=== PATIENT | female | born 1995 | race Two or more races ===

== ENCOUNTER 2018-12-16 07:46 | Inpatient (IN) | payer MEDICAID, OTHER ==
[~2018-12-16] VITALS: Ht 157.5 cm; Wt 59.0 kg
[2018-12-16] MEDS ORDERED: LACT. RINGERS/OXYTOCIN 20UNITS 1,000 ML IV SCH (08:19)
[2018-12-16] MEDS ORDERED: DERMOPLAST 60ML BOTTLE TOP PRN (08:30)
[2018-12-16] MEDS ORDERED: LIDOCAINE 2%HCL (LOCAL ANESTH.) INJ 20ML MDV ID PRN (08:30)
[2018-12-16] MEDS ORDERED: PENICILLIN G POT 5MIL/D5 50ML 50 ML IV ONE (08:30)
[2018-12-16] MEDS ORDERED: PHISODERM TOP SOLN 240ML BTL TOP PRN (08:30)
[2018-12-16] MEDS ORDERED: METHYLERGONOVINE MALEATE 0.2 MG/ML AMP IM PRN (08:30)
[2018-12-16] MEDS ORDERED: WITCH HAZEL-GLYCERIN PAD TOP PRN (08:30)
[2018-12-16] MEDS ORDERED: NALBUPHINE HCL 10 MG/1ml INJECTION IV PRN (08:30)
[2018-12-16] MEDS: LACTATED RINGER'S 1,000 ML IV SCH ×2 (08:50→09:23)
[2018-12-16 08:57] LABS: Basophils # (auto) 0 uL; Eosinophils # (auto) 0.1 uL; Hemoglobin 8.5 g/dL (12.2-16.2); Lymphocytes # (auto) 2.3 uL; Monocytes # (auto) 0.5 uL
[2018-12-16 08:59] LABS: Basophils % (auto) 0.3 % (0.0-2.0); Eosinophils % (auto) 0.9 % (0.0-7.0); Hematocrit 26.3 % (36.0-46.0); Lymphocytes % (auto) 22.1 % (10.0-50.0); Mean Corpuscular Hemoglobin 23.5 pg (28.0-32.0); Mean Corpuscular Hgb Conc. 32.4 g/dL (32.0-36.0); Mean Corpuscular Volume 72.4 fL (80.0-100.0); Monocytes % (auto) 4.7 % (0.0-12.0); Neutrophils # (auto) 7.3 uL; Platelet Count (auto) 256 10^3/uL (140-450); Red Blood Cells 3.64 10^6/uL (4.0-5.20); White Blood Cell 10.2 10^3/uL (4.4-10.8)
[2018-12-16 09:12] LABS: INR < 0.93 (0.9-1.15); Partial Thromboplastin Time 24.4 sec (23.64-32.05)
[2018-12-16 09:19] LABS: Albumin 2.3 g/dL (3.4-5.0); Calcium 8.1 mg/dL (8.5-10.1); Potassium 3.3 mmol/L (3.5-5.1); Uric Acid 4.2 mg/dL (2.6-6.0)
[2018-12-16 09:22] LABS: BUN/Creatinine Ratio 11.5; Bilirubin, Total 0.5 mg/dL (0.2-1.0); Total Protein 6.3 g/dL (6.4-8.2)
[2018-12-16] MEDS ORDERED: FERR27TA2 PO (09:25)
[2018-12-16] MEDS ORDERED: PREN-129 PO (09:25)
--- NOTE | 2018-12-16 11:29 | NUR ---
Ambulation: Patient OOB with standby assistance by RN. Patient ambulated to bathroom with steady gait. Patient able to void without difficulty. [facility] teaching provided with returned demonstration by patient. Clean gown provided and bed linen changed. Patient ambulated back to bed with steady gait and no distress noted.
[2018-12-16] MEDS: IBUPROFEN 600 MG TAB PO PRN ×2 (12:19→19:18)
[2018-12-16] MEDS ORDERED: PENICILLIN G POTASSIUM 2,500,000 UNITS in D5W 5% 50 ML IV SCH (12:30)
[2018-12-16 15:00] VITALS: BP 124/70
[2018-12-16 17:59] LABS: Urine Bacteria NONE SEEN /hpf (None Seen); Urine Blood TRACE /uL (Negative); Urine Specific Gravity 1.002 (1.001-1.035); Urine WBC 3 /hpf (0 - 5)
[2018-12-16 18:10] LABS: Alcohol, Urine < 3.0 mg/dL (0-5); Amphetamine Screen, Urine NEGATIVE (NEGATIVE); Barbiturate Scree,Urine NEGATIVE (NEGATIVE); Benzodiazephine Screen, Urine NEGATIVE (NEGATIVE); Cannabinoid Screen, Urine NEGATIVE (NEGATIVE); Cocaine Screen, Urine NEGATIVE (NEGATIVE); Opiate Scree,Urine NEGATIVE (NEGATIVE); Phencyclidine Screen, Urine NEGATIVE (NEGATIVE)
[2018-12-16 18:30] VITALS: BP 133/54
[2018-12-16 23:00] VITALS: BP 128/66
[2018-12-17] VITALS (7 sets, daily range): BP systolic 98–126; BP diastolic 60–74
[2018-12-17] MEDS: IBUPROFEN 600 MG TAB PO PRN (03:22)
[2018-12-17 05:06] LABS: RPR Non Reactive (Non Reactive)
--- NOTE | 2018-12-17 08:15 | NUR ---
Dr. Pierson at bedside and aware hgb is 8.5 and potassium serum level at 3.3 yesterday. new orders receive give iron tab 325 mg/ po/bid, potassium 40 meq po times once.
[2018-12-17] MEDS ORDERED: POTASSIUM CHL 20 Meq TABLET PO ONE (10:00)
[2018-12-17] MEDS: FERROUS SULFATE 325 MG TAB PO SCH ×2 (10:28→18:20)
[2018-12-17] MEDS: ACETAMINOPHEN 325 MG TAB PO PRN ×2 (10:29→18:21)
[2018-12-18 03:20] VITALS: BP 106/67
[2018-12-18 07:05] VITALS: BP 105/60
[2018-12-18] MEDS: FERROUS SULFATE 325 MG TAB PO SCH (08:17)
--- NOTE | 2018-12-18 09:15 | NUR ---
Kayli Huddleston at bedside for social service consult
--- NOTE | 2018-12-18 09:30 | NUR ---
Kayli Huddleston gave okay to d/c and will put notes in
--- NOTE | 2018-12-18 09:40 | NUR ---
Discharge: Discharge instructions given as ordered. Pt encouraged to follow up with [facility] [employer] as instructed. All questions and concerns addressed. Patient verbalized understanding. Medication reconciliation completed and copy given to patient. All required/requested vaccines given and copies of vaccinations given to patient. Patient encouraged to prepare to depart unit.
[2018-12-18 11:30] VITALS: BP 111/70
[2018-12-18 11:40] VITALS: BP 111/70
--- NOTE | 2018-12-18 11:40 | NUR ---
Discharge: Patient taken to vehicle via ambulating with all personal belongings, accompanied by staff and family member. No distress noted at time of departure, no adverse changes in status since initial assessment.
--- NOTE | 2018-12-18 16:07 | NUR ---
Received referral to see pt as pt had no care. Pt states the baby was 29 weeks and sent to [facility]. Pt has a boyfriend that is present. The pt states she lives with her mother. The pt has 5 girls and 2 boys. The are 17,15, 11, 16 and now the . The mom stated she was turned in because they had no running water in the home. 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 Her mother watches the children while the pt works. Pt's boyfriend is involved with the children.
[2018-12-19 06:09] LABS: Rubella Antibodies, IgG 1.89 index (Immune >0.99)
== END 2018-12-18 11:40 | disposition home or self-care (01) | DRG 560 ==
LOC: LDRP 07:46 → OBSVTOIN 08:15 → LDRP 08:32
PROVIDERS: ADMIT Specialist; ATTEND Specialist
PROC: 10E0XZZ Delivery of Products of Conception, External Approach (ICD-10-PCS; principal; 2018-12-16)
PROC: 10907ZC Drainage of Amniotic Fluid, Therapeutic from Products of Conception, Via Natural or Artificial Opening (ICD-10-PCS; 2018-12-16)
PROC: 0KQM0ZZ Repair Perineum Muscle, Open Approach (ICD-10-PCS; 2018-12-16)
DX: O70.1 Second degree perineal laceration during delivery (principal); Z37.0 Single live birth; Z3A.39 39 weeks gestation of pregnancy
CPT/HCPCS: 36415; 59025; 59409; 76805; 80053; 80307; 81001; 84112; 84550; 85025; 85610; 85730; 86592; 86703; 86762; 86850; 86900; 86901; 87340; 96365; 96366; 96372; G0378; J2540; J2590; J7060